=== PATIENT | female | born 1940 | race Two or more races ===

== ENCOUNTER 2017-11-13 10:48 | Outpatient (CLI) | payer OTHER ==
[~2017-11-13 10:48] MED LIST: ATACAND16 MG PO; HYDROCHLOROTH12.5 MG PO; NORFLEX100 MG PO; TENORMIN50 MG PO; TORADOL10 MG PO; TRAMADOL HCL-AP1 TAB PO; VASOTEC10 MG PO
== END 2017-11-13 13:28 | disposition home or self-care (01) ==
LOC: NUCLEAR 10:48
DX: I73.9 Peripheral vascular disease, unspecified (principal)

== ENCOUNTER 2019-10-22 08:50 | Emergency (ER) | payer OTHER ==
[~2019-10-22] VITALS: Ht 162.6 cm; Wt 74.8 kg
[2019-10-22] MEDS ORDERED: SYNALAR60 ML TOP (09:32)
[2019-10-22] MEDS ORDERED: MICARDIS40 MG PO (09:32)
== END 2019-10-22 15:58 | disposition home or self-care (01) ==
LOC: ER 08:50
DX: K52.89 Other specified noninfective gastroenteritis and colitis (principal)

== ENCOUNTER 2022-12-01 10:38 | Outpatient (CLI) | payer OTHER ==
[~2022-12-01 10:38] MED LIST changes: +MICARDIS40 MG PO; +SYNALAR60 ML TOP
== END 2022-12-01 10:43 | disposition home or self-care (01) ==
LOC: RAD 10:38
DX: M54.2 Cervicalgia (principal); R42 Dizziness and giddiness